=== PATIENT | female | born 1990 | race American Indian/Alaskan Native ===

== ENCOUNTER 2017-01-08 20:14 | Emergency (ER) | payer OTHER ==
[2017-01-08] MEDS ORDERED: ATIVAN ONE (20:49)
[2017-01-08] MEDS ORDERED: HALDOL ONE (20:49)
[2017-01-08] MEDS ORDERED: NACL 0.9% 1000 ML 1,000 ML IV ONE (20:53)
[2017-01-08 20:56] LABS: Basophils % (Auto) 0.5 % (0.0-1.8); Eosinophils % (Auto) 0.3 % (0.0-4.3); Hematocrit 35.2 % (30.3-42.9); Hemoglobin 11.2 gm/dl (10.1-14.3); Mean Corpuscular HGB Conc 32 % (30-34); Platelet Count 229 K/mm3 (140-440); Red Blood Count 5.43 M/mm3 (3.65-5.03); Red Cell Distribution Width 14.9 % (13.2-15.2)
[2017-01-08 20:57] LABS: Mean Corpuscular Hemoglobin 21 pg (28-32); Mean Corpuscular Volume 65 fl (79-97)
--- NOTE | 2017-01-08 20:58 | Emergency Department Report ---
ED Psych HPI - General Chief Complaint: Psych Stated Complaint: CALDREON BENITEZ Time Seen by Provider: 01/08/17 20:41 Source: family Mode of arrival: Ambulatory Limitations: Altered Mental Status - History of Present Illness Initial Comments: Patient is a 26 yr female presenting to the ER with her grandmother for altered mental status. As per the grandmother patient has a diagnosed history of paranoid schizophrenia and refuses treatment. Last treatment was a year and a half ago inpatient with medications. Currently patient does not take any medications. Patient has not drank or eaten anything in 4 days and is now altered with garbled speech. As per the grandmother she states the patient has a history of drug abuse and smokes marijuana daily and recently has been smoking more marijuana and possibly other illicit drugs. Otherwise no other information given patient is a poor historian and is altered. MD Complaint: other (psychosis) -: Gradual Associated Psychiatric Symptoms: visual hallucinations, delusions Improves With: none, medication Worsens With: none Context: recent drug abuse - Related Data Home Medications Medication Instructions Recorded Confirmed Last Taken No Known Home Medications [No 01/09/17 01/09/17 Unknown Reported Home Medications] Allergies Allergy/AdvReac Type Severity Reaction Status Date / Time No Known Allergies Allergy Unverified 01/08/17 20:34 ED Review of Systems ROS: Stated complaint: CALDERON BENITEZ Other details as noted in HPI Comment: Unobtainable due to pts medical conditions ED Past Medical Hx - Past Medical History Previous Medical History?: No Additional medical history: Paranoid schizophrenia - Surgical History Past Surgical History?: No - Family History Family history: no significant - Social History Smoking Status: Current Every Day Smoker Substance Use Type: Marijuana, Other (other illicit drugs, unk to grandmother) - Medications Home Medications: Home Medications Medication Instructions Recorded Confirmed Last Taken Type No Known Home Medications [No 01/09/17 01/09/17 Unknown History Reported Home Medications] ED Physical Exam - General Limitations: Altered Mental Status - Eye Eye exam: Present: normal appearance Pupils: Present: normal accommodation. Absent: irregular, unequal - Respiratory Respiratory exam: Present: normal lung sounds bilaterally. Absent: respiratory distress - Cardiovascular Cardiovascular Exam: Present: regular rate, normal rhythm - GI/Abdominal GI/Abdominal exam: Present: soft. Absent: distended, tenderness - Neurological Exam Neurological exam: Present: alert, other (altered, garbled speech, not following commands, aggressive and combative). Absent: motor sensory deficit - Psychiatric Psychiatric exam: Present: agitated - Skin Skin exam: Present: warm, dry, intact ED Course Vital Signs 01/08/17 01/09/17 01/09/17 20:26 08:23 19:15 Temperature 98.6 F 97.7 F 98.6 F Pulse Rate 89 80 57 L Respiratory 18 15 17 Rate Blood Pressure 134/77 Blood Pressure 139/80 97/53 [Right] O2 Sat by Pulse 98 98 99 Oximetry ED Medical Decision Making - Lab Data Result diagrams: 01/08/17 20:45 01/08/17 20:49 - EKG Data -: EKG Interpreted by [facility] EKG shows normal: sinus rhythm, axis (normal), intervals (normal), ST-T waves ( No St/T changes, no STEMI) Rate: normal - Medical Decision Making On evaluation of the patient she is extremely agitated, aggressive, combative. Patient given Haldol 5 mg IM and Ativan 2 mg IM. 2143: 1013'd the patient for acute psychosis Evaluated by the psych screening team, patient refusing to talk limited exam, recommended continue a 1013 for inpatient services and they will get a collateral information for further medication. Critical care attestation.: If time is entered above; I have spent that time in minutes in the direct care of this critically ill patient, excluding procedure time. ED Disposition Clinical Impression: Psychosis, Dehydration, UTI (urinary tract infection) Condition: Stable Referrals: PRIMARY CARE, [Primary Care Provider] - 3-5 Days
[2017-01-08 21:18] LABS: Anion Gap 17 mmol/L; BUN/Creatinine Ratio 15.55; Blood Urea Nitrogen 14 mg/dL (7-17); Calcium 9.7 mg/dL (8.4-10.2); Carbon Dioxide 25 mmol/L (22-30); Chloride 101.5 mmol/L (98-107); Glucose 107 mg/dL (65-100); Potassium 4.1 mmol/L (3.6-5.0); Sodium 139 mmol/L (137-145)
[2017-01-08 21:18] LABS: Urine Drugs of Abuse Note Disclamer
[2017-01-08 21:26] LABS: Bilirubin,Urine NEG (Negative); Blood,Urine NEG (Negative); Ketones,Urine 20 mg/dL (Negative); Leukocyte Esterase,Urine LG (Negative); Mucus,Urine 3+ /HPF; Nitrite,Urine NEG (Negative)
[2017-01-08] MEDS ORDERED: HALDOL IM ONE (23:01)
[2017-01-08] MEDS ORDERED: ATIVAN IV ONE (23:02)
[2017-01-08] MEDS ORDERED: BENADRYL IM ONE (23:03)
[2017-01-08] MEDS ORDERED: ROCEPHIN/NS 1 GM/50 ML 1 GM/50 ML BAG IV ONE (23:19)
--- NOTE | 2017-01-09 03:22 | Cat Scan Report ---
FINAL REPORT PROCEDURE: CT HEAD/BRAIN WO CON TECHNIQUE: Computerized tomography of the head was performed without contrast material. HISTORY: altered ms COMPARISON: No prior studies are available for comparison. FINDINGS: Skull and scalp: Normal. Paranasal sinuses: Normal. Ventricles and subarachnoid spaces: Normal. Cerebrum: No evidence of hemorrhage, acute infarction or mass . Cerebellum and brainstem: No evidence of hemorrhage, acute infarction or mass. Vasculature: Normal. Comments: None. IMPRESSION: There is no evidence of an acute intracranial process
--- NOTE | 2017-01-09 04:07 | Emergency Department Report ---
Blank Doc - Documentation Documentation: CT brain was performed. This was noted to be negative as read by the radiologist. Patient has been resting comfortably tonight.
--- NOTE | 2017-01-09 11:13 | Consultation ---
History of Present Illness - Reason for Consult Consult date: 01/09/17 Reason for consult: Mental Health Evaluation Requesting physician: AMAYA BURTON - Chief Complaint Chief complaint: "Nothing is wrong with me" - History of Present Psychiatric Illness Patient is a 26 yr AA female presenting to the ER with for altered mental status. Today patient would not answer questions initially. After asking her multiple times her name and what brought her to [facility], patient became emotional. She refused to talk with me. Per collateral information from admission note, she have a hx of paranoid schizophrenia. At this time an accurate assessment of the patient was unsuccessful. Medications and Allergies Allergies Allergy/AdvReac Type Severity Reaction Status Date / Time No Known Allergies Allergy Unverified 01/08/17 20:34 Home Medications Medication Instructions Recorded Confirmed Last Taken Type No Known Home Medications [No 01/09/17 01/09/17 Unknown History Reported Home Medications] Past psychiatric history - Past Medical History Past Surgical History: No surgical history Mental Status Exam - Vital signs Last Vital Signs Temp 97.7 F 01/09/17 08:23 Pulse 80 01/09/17 08:23 Resp 15 01/09/17 08:23 BP 139/80 01/09/17 08:23 Pulse Ox 98 01/09/17 08:23 - Exam Narrative exam: Patient would not answer my question about prior inpatient services. She became emotional during discussion. Unable to complete MSE Results Result Diagrams: 01/08/17 20:45 01/08/17 20:49 Abnormal lab results 01/08/17 01/08/17 01/08/17 Range/Units 20:45 20:49 21:05 RBC 5.43 H (3.65-5.03) M/mm3 MCV 65 L (79-97) fl MCH 21 L (28-32) pg Mclennan % (Auto) 13.9 H (0.0-7.3) % Mclennan # 1.1 H (0.0-0.8) K/mm3 Glucose 107 H (65-100) mg/dL Urine WBC (Auto) 36.0 H (0.0-6.0) /HPF U Epithel Cells (Auto) 15.0 H (0-13.0) /HPF All other labs normal. Assessment and Plan Assessment and plan: Impression: Psychosis NOS. Hx of paranoid schizophrenia per admission note. At this time an accurate assessment was unsuccessful. Head CT negative. DD: Schizophrenia, R/O Bipolar, R/O Schizoaffective DO Recommendation/Plan: Continue 1013 with placement to inpatient psy services. Gather more collateral information to determine medication treatment.
[2017-01-10] MEDS ORDERED: HALDOL ONE (00:49)
[2017-01-10] MEDS ORDERED: HALDOL IM ONE (00:59)
--- NOTE | 2017-01-10 10:47 | Progress Note ---
Subjective - Reason for Consult Consult date: 01/10/17 Reason for consult: Psychiatry Follow-up - Chief Complaint Chief complaint: "What day is it" Patient is a 26 yr AA female presenting to the ER with for altered mental status. Initially, the patient presents calm and cooperative during our conversation. She stated that her grandmother brought her to [facility] because she was not "herself." She stated that she felt like her body was leaving her. I told her that it was the 10 of January, she became emotional and started yelling and screaming, delusional when asked questioned with a tangential thought process. She stated that her best friend b-day was yestertday and [facility] was holding her against her will. I had to redirect and reassure her that was not the case. Once she calmed down, she did state she took risperdal in the past for a "problem I may have." She denies SI/HI's or AVH at this time. Mental Status Exam - Vital signs Last Vital Signs Temp 98.8 F 01/10/17 07:25 Pulse 78 01/10/17 07:25 Resp 17 01/10/17 07:25 BP 111/62 01/10/17 07:25 Pulse Ox 97 01/10/17 07:25 - Exam Orientation: person Affect: flat Mood: other ("I'm tired") Thought content: delusions Thought Process: Tangential Perceptions: other (Could not deny or confirm) Speech: pressured Concentration: focused Motor activity: other (Sitting up) Level of consciousness: confused Memory: Recent Impaired Sleep Symptoms: None Interaction: defensive Assessment and Plan Impression: Patient is a 26 yr AA female presenting to the ER with for altered mental status. Initially, the patient presents calm and cooperative during our conversation. She became delusional with a tangential thought process once she realized that she missed her best friend b-day. Once she calmed down, she did state she took risperdal in the past for a "problem I may have." She denies SI/ HI's or AVH at this time. Recommendation/Plan: Continue 1013 with placement to inpatient psy services. Start Risperdal 2 mg PO HS for psychosis. Discussed metabolic side effects with patient reference Risperdal.
[2017-01-10] MEDS: RisperDAL PO SCH (22:30)
--- NOTE | 2017-01-11 19:39 | Progress Note ---
Subjective - Reason for Consult Consult date: 01/11/17 Reason for consult: psychiatric follow up - Chief Complaint Chief complaint: "What day is it" Patient is a 26 yr AA female presenting to the ER with for altered mental status. She was calm and cooperative with this author but later was screaming in her room that hospital staff were holding her against her wishes. She discussed with me about how the trevino say "you kill all." She then goes on to say she must maintain cleanliness and scrub those messages off the wall. 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 Her thought process at that point was logical but quickly derailed. She expressed paranoid delusions and described auditory hallucinations. She is focused on cleaning her body and everything around her, and it unclear if this is an obsessive compulsive disorder and psychosis. She was unable to provide logical answers about her sleep. When asked if she had thoughts or commands to harm herself, she reported how she wants to get off the planet via [employer]. Mental Status Exam - Vital signs Last Vital Signs Temp 97.6 F 01/11/17 07:30 Pulse 64 01/11/17 07:30 Resp 18 01/11/17 07:30 BP 109/73 01/11/17 07:30 Pulse Ox 100 01/11/17 07:30 - Exam Orientation: person Affect: anxious Mood: congruent with affect Thought content: delusions, obsessions, paranoia Thought Process: Goal Oriented Perceptions: auditory, hallucinations Speech: rapid Concentration: distractible Motor activity: restless Level of consciousness: alert Interaction: cooperative Assessment and Plan Impression: Psychosis with obsessive component Recommendation/Plan: Continue 1013 with placement to inpatient psychiatric services. Continue Risperdal 2 mg PO HS for psychosis.
[2017-01-11] MEDS: RisperDAL PO SCH (22:45)
[2017-01-12 01:27] VITALS: BP 112/71
== END 2017-01-12 07:03 ==
LOC: EEVIPCON 20:14 → ED 20:14
DX: F29 Unspecified psychosis not due to a substance or known physiological condition (principal); E86.0 Dehydration; N39.0 Urinary tract infection, site not specified; F20.0 Paranoid schizophrenia; F17.200 Nicotine dependence, unspecified, uncomplicated; F12.10 Cannabis abuse, uncomplicated
CPT/HCPCS: 36415; 70450; 80048; 80307; 80320; 81001; 82962; 84703; 85025; 93005; 93010; 96365; 96366; 96372; 96375; G0480; J0696; J1630; J2060; J7030